=== PATIENT | female | born 2000 | race Caucasian/White ===

== ENCOUNTER 2023-02-13 14:55 | Emergency (ER) | payer OTHER ==
[~2023-02-13] VITALS: Ht 157.5 cm; Wt 95.7 kg
[2023-02-13] MEDS ORDERED: SYNTHROID50 MCG PO (15:25)
[2023-02-13] MEDS ORDERED: PRENATAL + DHA1 EAC1 (15:25)
== END 2023-02-13 17:47 | disposition home or self-care (01) ==
LOC: ER 14:55
DX: O23.31 Infections of other parts of urinary tract in pregnancy, first trimester (principal); B96.89 Other specified bacterial agents as the cause of diseases classified elsewhere; N39.0 Urinary tract infection, site not specified; Z3A.10 10 weeks gestation of pregnancy

== ENCOUNTER 2023-07-17 22:06 | Inpatient (IN) | payer OTHER ==
[~2023-07-17] VITALS: Ht 157.5 cm; Wt 95.3 kg
[~2023-07-17 22:06] MED LIST: PRENATAL + DHA1 EAC1; SYNTHROID50 MCG PO; ZYRTEC10 M3 PO
[2023-07-18 00:42] LABS: HEMATOCRIT 36.3 % (36.0-45.00); MEAN CELL VOLUME 90.4 fL (80.00-100.00); MEAN CORPUSCULAR HEMOGLOBIN 29.9 pg (27.00-32.0); MEAN CORPUSCULAR HGB CONC 33.1 g/dl (32.0-36.0); PH,URINE 6.5 (5.0-8.0); PLATELET COUNT 263 K/uL (150-450); RED BLOOD COUNT 4.01 M/uL (4.00-6.00); RED CELL DISTRIBUTION WIDTH 14.2 % (11.5-14.5); URINE APPEARANCE Cloudy; URINE BILIRRUBIN Small (NEGATIVE); URINE BLOOD Negative; URINE COLOR Dark Yellow; URINE GLUCOSE Negative (NEGATIVE); URINE LEUKOCYTE Moderate; URINE NITRATE Negative; URINE PROTEIN Trace (NEGATIVE)
[2023-07-18 00:45] LABS: URINE BACTERIA 6497.6 uL (0.0-1933); URINE RBC 2.1 uL (0.0-20.8); URINE WBC 527.5 uL (0.0-23.2)
[2023-07-18 01:01] LABS: PARTIAL THROMBOPLASTIN TIME 25.4 SECONDS (22.0-34.0); PROTHROMBIN TIME 10.5 SECONDS (9.0-11.5)
[2023-07-18 01:06] LABS: ALBUMIN 2.9 gm/dL (3.4-5.0); BILIRUBIN TOTAL 0.75 mg/dL (0.3-1.2); CALCIUM 9.3 mg/dL (8.5-10.1); CREATININE SERUM 0.53 mg/dL (0.55-1.02); GFR 140.55; GLOBULINA 3.8 G/DL (2.4-3.5); POTASSIUM 4.17 mEq/L (3.5-5.1); TOTAL PROTEIN 6.7 gm/dL (6.4-8.2)
[2023-07-18 07:26] LABS: T4 FREE 1.06 NG/ML (0.76-1.46); TSH 3.56 uIU/mL (0.358-3.74)
[2023-07-19 01:23] LABS: HEMATOCRIT 34.5 % (36.0-45.00); HEMOGLOBIN 11.4 g/dL (12.0-15.00); MEAN CELL VOLUME 89.9 fL (80.00-100.00); MEAN CORPUSCULAR HEMOGLOBIN 29.8 pg (27.00-32.0); MEAN CORPUSCULAR HGB CONC 33.1 g/dl (32.0-36.0); PLATELET COUNT 344 K/uL (150-450); RED BLOOD COUNT 3.84 M/uL (4.00-6.00); RED CELL DISTRIBUTION WIDTH 14.6 % (11.5-14.5)
== END 2023-07-20 14:08 | disposition home or self-care (01) | DRG 807 ==
LOC: OB/GYN 22:06 → LDR 22:06 → OB/GYN 07-18 14:35
PROVIDERS: ADMIT Specialist; ATTEND Specialist
PROC: 4A1HXCZ Monitoring of Products of Conception, Cardiac Rate, External Approach (ICD-10-PCS; 2023-07-17)
PROC: 10E0XZZ Delivery of Products of Conception, External Approach (ICD-10-PCS; principal; 2023-07-18)
DX: O60.14X0 Preterm labor third trimester with preterm delivery third trimester, not applicable or unspecified (principal); Z37.0 Single live birth; Z3A.34 34 weeks gestation of pregnancy; Z20.822 Contact with and (suspected) exposure to COVID-19